=== PATIENT | female | born 1990 | race Caucasian/White ===

== ENCOUNTER 2022-10-09 10:54 | Emergency (ER) | payer BC ==
[~2022-10-09] VITALS: Ht 160 cm; Wt 99.8 kg
[2022-10-09] MEDS ORDERED: AMOXICILLIN500 MG PO (12:02)
[2022-10-09] MEDS ORDERED: ULTRAM 50MG50 MG PO (12:03)
== END 2022-10-09 12:31 | disposition home or self-care (01) ==
LOC: FSED 10:59 → EEVIPCON 10:59 → FSED 12:31
DX: J02.0 Streptococcal pharyngitis (principal)
CPT/HCPCS: 83518; 87400; 99283